=== PATIENT | male | born 1965 | race Caucasian/White ===

== ENCOUNTER 2022-05-10 21:05 | Inpatient (IN) | payer OTHER ==
[2022-05-11 03:14] VITALS: BMI 25.5
[2022-05-11] MEDS ORDERED: BISMUTH SUBSALICYLATE 524 MG/30 ML PO PRN (05:14)
[2022-05-11] MEDS ORDERED: IBUPROFEN 400 MG TABLET (FP) PO PRN (05:14)
[2022-05-11] MEDS ORDERED: cloNIDine HCL 0.1 MG TABLET PO PRN (05:14)
[2022-05-11] MEDS ORDERED: DICYCLOMINE HCL 10 MG CAPSULE PO PRN (05:14)
[2022-05-11] MEDS ORDERED: ONDANSETRON *ODT* 4 MG TABLET SL PRN (05:14)
[2022-05-11] MEDS ORDERED: MAG HYDROX/AL HYDROX/SIMETH 30 ML UNIT-DOSE CUP PO PRN (05:14)
[2022-05-11] MEDS ORDERED: IBUPROFEN 600 MG TABLET (FP) PO PRN (05:14)
[2022-05-11] MEDS ORDERED: methaDONE HCL 10 MG TABLET (FOR DETOX USE ONLY) PO ONE (05:14)
[2022-05-11] MEDS ORDERED: LOPERAMIDE HCL 2 MG CAPSULE PO PRN (05:14)
[2022-05-11] MEDS ORDERED: MAGNESIUM CITRATE 300 ML BOTTLE PO PRN (05:14)
[2022-05-11] MEDS ORDERED: MAGNESIUM HYDROX 2400MG/30ML ORAL SUSPENSION 30 ML CUP PO PRN (05:14)
[2022-05-11] MEDS ORDERED: ACETAMINOPHEN 325 MG TABLET (FP) PO PRN ×2 (05:14)
[2022-05-11] MEDS ORDERED: BENZOCAINE/MENTHOL (CHLORASEPTIC ) LOZENGE MM PRN (05:14)
[2022-05-11] MEDS ORDERED: methaDONE HCL 10 MG TABLET (FOR DETOX USE ONLY) ONE (09:20)
[2022-05-11] MEDS: PRENATAL VITAMINS W/ FOLIC ACID TABLET (FP) PO SCH (12:02)
[2022-05-11] MEDS: METHOCARBAMOL 500 MG TABLET PO PRN ×2 (12:05→22:12)
[2022-05-11 13:57] LABS: HEMATOCRIT 42.1 % (35.4-49); HEMOGLOBIN 13.9 GM/dL (11.7-16.9); MCH 31.2 pg (25.7-33.7); MEAN CELL VOLUME 94.5 fl (80-96); MEAN PLT VOLUME 9.2 fl (7.5-11.1); PLATELET COUNT 224 10^3/uL (134-434); RBC 4.46 M/mm3 (4.00-5.60); RDW 13.7 % (11.9-15.9); WHITE BLOOD COUNT 3.3 K/mm3 (4.0-10.0)
[2022-05-11 13:58] LABS: ALBUMIN 3.5 g/dl (3.4-5.0); BLOOD UREA NITROGEN 10.9 mg/dL (7-18)
[2022-05-11 14:02] LABS: BILIRUBIN,TOTAL 0.5 mg/dL (0.2-1); CALCIUM 9.5 mg/dL (8.5-10.1); TOT PROT 6.6 g/dl (6.4-8.2)
[2022-05-11 14:14] LABS: CREATININE 0.7 mg/dL (0.55-1.3)
[2022-05-11] MEDS: MELATONIN 5 MG TABLETS PO SCH (22:12)
[2022-05-11] MEDS: THIAMINE HCL 100 MG TABLET (FP) PO SCH (22:12)
[2022-05-12] MEDS: METHOCARBAMOL 500 MG TABLET PO PRN (10:52)
[2022-05-12] MEDS: PRENATAL VITAMINS W/ FOLIC ACID TABLET (FP) PO SCH (10:52)
[2022-05-12] MEDS: BICTEGRAV/EMTRICIT/TENOFOV (BIKTARVY) 50-200-25 MG TABLET PO SCH (14:45)
[2022-05-12] MEDS: MELATONIN 5 MG TABLETS PO SCH (23:20)
[2022-05-12] MEDS: THIAMINE HCL 100 MG TABLET (FP) PO SCH (23:20)
[2022-05-13] MEDS ORDERED: methaDONE HCL 10 MG TABLET (FOR DETOX USE ONLY) PO ONE (10:00)
[2022-05-13] MEDS: BICTEGRAV/EMTRICIT/TENOFOV (BIKTARVY) 50-200-25 MG TABLET PO SCH (10:26)
[2022-05-13] MEDS: PRENATAL VITAMINS W/ FOLIC ACID TABLET (FP) PO SCH (10:27)
[2022-05-13] MEDS: METHOCARBAMOL 500 MG TABLET PO PRN ×3 (10:27→22:18)
[2022-05-13] MEDS: diazePAM 5 MG TABLET PO PRN ×2 (17:18→22:18)
[2022-05-13] MEDS: MELATONIN 5 MG TABLETS PO SCH (22:17)
[2022-05-13] MEDS: THIAMINE HCL 100 MG TABLET (FP) PO SCH (22:17)
[2022-05-14] MEDS: BICTEGRAV/EMTRICIT/TENOFOV (BIKTARVY) 50-200-25 MG TABLET PO SCH (10:27)
[2022-05-14] MEDS: PRENATAL VITAMINS W/ FOLIC ACID TABLET (FP) PO SCH (10:28)
[2022-05-14] MEDS: THIAMINE HCL 100 MG TABLET (FP) PO SCH (23:59)
[2022-05-14] MEDS: MELATONIN 5 MG TABLETS PO SCH (23:59)
[2022-05-15] MEDS ORDERED: methaDONE HCL 10 MG TABLET (FOR DETOX USE ONLY) PO ONE (10:00)
[2022-05-15] MEDS: METHOCARBAMOL 500 MG TABLET PO PRN (10:22)
[2022-05-15] MEDS: PRENATAL VITAMINS W/ FOLIC ACID TABLET (FP) PO SCH (10:22)
[2022-05-15] MEDS: BICTEGRAV/EMTRICIT/TENOFOV (BIKTARVY) 50-200-25 MG TABLET PO SCH (10:22)
[2022-05-15] MEDS: MELATONIN 5 MG TABLETS PO SCH (23:35)
[2022-05-15] MEDS: THIAMINE HCL 100 MG TABLET (FP) PO SCH (23:35)
[2022-05-16 07:11] VITALS: BP 109/7; PULSE 60; RESP 18; TEMP 97.4
[2022-05-16] MEDS: BICTEGRAV/EMTRICIT/TENOFOV (BIKTARVY) 50-200-25 MG TABLET PO SCH (10:11)
[2022-05-16] MEDS: PRENATAL VITAMINS W/ FOLIC ACID TABLET (FP) PO SCH (10:11)
== END 2022-05-16 13:55 | disposition home or self-care (01) | DRG 897 ==
LOC: YASAS 21:05 → Y6N 05-11 11:41
PROVIDERS: ADMIT Allergy & Immunology; ATTEND Surgery
PROC: HZ2ZZZZ Detoxification Services for Substance Abuse Treatment (ICD-10-PCS; principal; 2022-05-11)
DX: F11.23 Opioid dependence with withdrawal (principal); F41.9 Anxiety disorder, unspecified; Z21 Asymptomatic human immunodeficiency virus [HIV] infection status; Z87.891 Personal history of nicotine dependence; Z56.0 Unemployment, unspecified; Z59.00 Homelessness unspecified
CPT/HCPCS: 36415; 80053; 85027; 86780; 87811; 93005; 93010; C9803-CS; U0003; U0005

== ENCOUNTER 2023-10-13 12:40 | Inpatient (IN) | payer OTHER ==
[2023-10-13 13:49] VITALS: BMI 25.0
[2023-10-13] MEDS ORDERED: MAG HYDROX/AL HYDROX/SIMETH 30 ML UNIT-DOSE CUP PO PRN (14:45)
[2023-10-13] MEDS ORDERED: POLYETHYLENE GLYCOL (HEALTHYLAX) 3350 17 GM PACKET PO PRN (14:45)
[2023-10-13] MEDS ORDERED: NALOXONE HCL (KLOXXADO) 8 MG SPRAY NS PRN (14:45)
[2023-10-13] MEDS ORDERED: ACETAMINOPHEN 325 MG TABLET (FP) PO PRN (14:45)
[2023-10-13] MEDS ORDERED: BENZOCAINE/MENTHOL (CHLORASEPTIC ) LOZENGE MM PRN (14:45)
[2023-10-13] MEDS ORDERED: ONDANSETRON *ODT* 4 MG TABLET SL PRN (14:45)
[2023-10-13] MEDS ORDERED: IBUPROFEN 400 MG TABLET (FP) PO PRN (14:45)
[2023-10-13] MEDS ORDERED: BENZONATATE 200 MG CAPSULE PO PRN (14:45)
[2023-10-13] MEDS ORDERED: NALOXONE HCL 0.4 MG/ML VIAL IM PRN (14:45)
[2023-10-13] MEDS ORDERED: BISMUTH SUBSALICYLATE 262 MG/15 ML BTL PO PRN (14:45)
[2023-10-13] MEDS ORDERED: guaiFENesin 600 MG TABLET.ER (FP) PO PRN (14:45)
[2023-10-13] MEDS ORDERED: MAGNESIUM HYDROX 2400MG/30ML ORAL SUSPENSION 30 ML CUP PO PRN (14:45)
[2023-10-13] MEDS ORDERED: cloNIDine HCL 0.1 MG TABLET PO PRN (14:45)
[2023-10-13] MEDS ORDERED: NICOTINE 14 MG/24 HOURS TOPICAL PATCH TD ONE (15:33)
[2023-10-13] MEDS ORDERED: methaDONE HCL 10 MG TABLET (FOR DETOX USE ONLY) ONE (15:33)
[2023-10-13] MEDS: methaDONE HCL 10 MG TABLET (FOR DETOX USE ONLY) PO ONE (15:37)
[2023-10-13] MEDS: PRENATAL VITAMINS W/ FOLIC ACID TABLET (FP) PO SCH (15:38)
[2023-10-13] MEDS: NICOTINE 14 MG/24 HOURS TOPICAL PATCH TD SCH (15:41)
[2023-10-13] MEDS: METHOCARBAMOL 500 MG TABLET PO PRN (22:42)
[2023-10-13] MEDS: hydrOXYzine PAMOATE 25 MG CAPSULE (FP) PO PRN (22:42)
[2023-10-13] MEDS: MELATONIN 5 MG TABLETS PO SCH (22:42)
[2023-10-13] MEDS: THIAMINE HCL 100 MG TABLET (FP) PO SCH (22:42)
[2023-10-14 13:40] LABS: HEMATOCRIT 38.5 % (35.4-49); HEMOGLOBIN 13.2 GM/dL (11.7-16.9); MCH 32.6 pg (25.7-33.7); MCHC 34.2 g/dl (32.0-35.9); MEAN CELL VOLUME 95.3 fl (80-96); MEAN PLT VOLUME 8.5 fl (7.5-11.1); PLATELET COUNT 188 10^3/uL (134-434); RBC 4.04 M/mm3 (4.00-5.60); RDW 13.1 % (11.9-15.9); WHITE BLOOD COUNT 4.9 K/mm3 (4.0-10.0)
[2023-10-14 14:11] LABS: POTASSIUM 4.4 mmol/L (3.5-5.1)
[2023-10-14 14:13] LABS: CALCIUM 9.1 mg/dL (8.5-10.1)
[2023-10-14 14:15] LABS: ALBUMIN 3.4 g/dl (3.4-5.0); BLOOD UREA NITROGEN 12.3 mg/dL (7-18)
[2023-10-14 14:17] LABS: CREATININE 0.7 mg/dL (0.55-1.3)
[2023-10-14 14:19] LABS: BILIRUBIN,TOTAL 0.5 mg/dL (0.2-1); TOT PROT 6.4 g/dl (6.4-8.2)
[2023-10-14] MEDS: IBUPROFEN 600 MG TABLET (FP) PO PRN (22:51)
[2023-10-15] MEDS: methaDONE HCL 10 MG TABLET (FOR DETOX USE ONLY) PO ONE (09:54)
[2023-10-16] MEDS: DICYCLOMINE HCL 10 MG CAPSULE PO PRN (09:57)
[2023-10-16] MEDS: GABAPENTIN 400 MG CAPSULE PO SCH (14:47)
[2023-10-16] MEDS: DIVALPROEX SODIUM 500 MG TABLET E.C. PO SCH (22:40)
[2023-10-17] MEDS: BICTEGRAV/EMTRICIT/TENOFOV (BIKTARVY) 50-200-25 MG TABLET PO SCH (08:08)
[2023-10-17] MEDS: methaDONE HCL 10 MG TABLET (FOR DETOX USE ONLY) PO ONE (10:32)
[2023-10-18] MEDS: LOPERAMIDE HCL 2 MG CAPSULE PO PRN (08:09)
[2023-10-18 09:23] VITALS: BP 109/60; PULSE 73; RESP 16; TEMP 98.4
== END 2023-10-18 09:56 | disposition home or self-care (01) | DRG 897 ==
LOC: YASAS 12:40 → Y6N 15:12
PROVIDERS: ADMIT Allergy & Immunology; ATTEND Surgery
PROC: HZ2ZZZZ Detoxification Services for Substance Abuse Treatment (ICD-10-PCS; principal; 2023-10-13)
DX: F11.23 Opioid dependence with withdrawal (principal); F14.20 Cocaine dependence, uncomplicated; F19.280 Other psychoactive substance dependence with psychoactive substance-induced anxiety disorder; B20 Human immunodeficiency virus [HIV] disease; G99.0 Autonomic neuropathy in diseases classified elsewhere; F17.210 Nicotine dependence, cigarettes, uncomplicated; F31.70 Bipolar disorder, currently in remission, most recent episode unspecified
CPT/HCPCS: 36415; 80053; 80164; 85027; 86780; 87635; 87811; 93005; 93010

== ENCOUNTER 2024-04-24 22:36 | Inpatient (IN) | payer OTHER ==
[2024-04-24 23:26] VITALS: BMI 22.5
[2024-04-25] MEDS ORDERED: NALOXONE (NARCAN) HCL 4 MG/0.1 ML SPRAY NS PRN (00:43)
[2024-04-25] MEDS ORDERED: DICYCLOMINE HCL 10 MG CAPSULE PO PRN (00:43)
[2024-04-25] MEDS ORDERED: POLYETHYLENE GLYCOL (HEALTHYLAX) 3350 17 GM PACKET PO PRN (00:43)
[2024-04-25] MEDS ORDERED: BENZONATATE 200 MG CAPSULE PO PRN (00:43)
[2024-04-25] MEDS ORDERED: guaiFENesin 600 MG TABLET.ER (FP) PO PRN (00:43)
[2024-04-25] MEDS ORDERED: BISMUTH SUBSALICYLATE 524 MG/30 ML PO PRN (00:43)
[2024-04-25] MEDS ORDERED: NICOTINE POLACRILEX 2 MG GUM BUC PRN (00:43)
[2024-04-25] MEDS ORDERED: MAG HYDROX/AL HYDROX/SIMETH 30 ML UNIT-DOSE CUP PO PRN (00:43)
[2024-04-25] MEDS ORDERED: ONDANSETRON *ODT* 4 MG TABLET SL PRN (00:43)
[2024-04-25] MEDS ORDERED: MAGNESIUM HYDROX 2400MG/30ML ORAL SUSPENSION 30 ML CUP PO PRN (00:43)
[2024-04-25] MEDS ORDERED: IBUPROFEN 600 MG TABLET (FP) PO PRN (00:43)
[2024-04-25] MEDS ORDERED: LOPERAMIDE HCL 2 MG CAPSULE PO PRN (00:43)
[2024-04-25] MEDS ORDERED: NALOXONE HCL 0.4 MG/ML VIAL IM PRN (00:43)
[2024-04-25] MEDS ORDERED: IBUPROFEN 400 MG TABLET (FP) PO PRN (00:43)
[2024-04-25] MEDS: ACETAMINOPHEN 325 MG TABLET (FP) PO PRN (01:30)
[2024-04-25] MEDS: PRENATAL VITAMINS W/ FOLIC ACID TABLET (FP) PO SCH (10:33)
[2024-04-25] MEDS: NICOTINE 14 MG/24 HOURS TOPICAL PATCH TD SCH (10:33)
[2024-04-25] MEDS: METHOCARBAMOL 500 MG TABLET PO PRN (10:34)
[2024-04-25] MEDS: MELATONIN 5 MG TABLETS PO SCH (22:12)
[2024-04-25] MEDS: THIAMINE 100 MG TABLET PO SCH (22:12)
[2024-04-26] MEDS ORDERED: cloNIDine HCL 0.1 MG TABLET PO PRN (10:12)
[2024-04-26] MEDS: methaDONE HCL 10 MG TABLET (FOR DETOX USE ONLY) PO ONE (10:49)
[2024-04-26 11:11] LABS: HEMATOCRIT 32.9 % (35.4-49); HEMOGLOBIN 10.9 GM/dL (11.7-16.9); MCH 31.4 pg (25.7-33.7); MCHC 33.1 g/dl (32.0-35.9); MEAN CELL VOLUME 94.9 fl (80-96); MEAN PLT VOLUME 8.6 fl (7.5-11.1); PLATELET COUNT 210 10^3/uL (134-434); RBC 3.46 M/mm3 (4.00-5.60); RDW 13.5 % (11.9-15.9); WHITE BLOOD COUNT 3.4 K/mm3 (4.0-10.0)
[2024-04-26 11:21] LABS: POTASSIUM 4.5 mmol/L (3.5-5.1)
[2024-04-26 11:25] LABS: ALBUMIN 2.5 g/dl (3.4-5.0); CALCIUM 8.7 mg/dL (8.5-10.1)
[2024-04-26 11:29] LABS: CREATININE 0.6 mg/dL (0.55-1.3)
[2024-04-26 11:30] LABS: BILIRUBIN,TOTAL 0.2 mg/dL (0.2-1); TOT PROT 5.3 g/dl (6.4-8.2)
[2024-04-27] MEDS: BICTEGRAV/EMTRICIT/TENOFOV (BIKTARVY) 50-200-25 MG TABLET PO SCH (13:56)
[2024-04-28] MEDS: methaDONE HCL 10 MG TABLET (FOR DETOX USE ONLY) PO ONE (09:44)
[2024-04-29] MEDS: hydrOXYzine PAMOATE 25 MG CAPSULE (FP) PO PRN (22:41)
[2024-04-29] MEDS: BENZOCAINE/MENTHOL (CHLORASEPTIC ) LOZENGE MM PRN (22:49)
[2024-04-30] MEDS: methaDONE HCL 10 MG TABLET (FOR DETOX USE ONLY) PO ONE (09:58)
[2024-05-01 06:47] VITALS: BP 102/60; PULSE 60; RESP 16; TEMP 98.9
== END 2024-05-01 08:47 | disposition home or self-care (01) | DRG 897 ==
LOC: YASAS 22:36 → Y3N 04-25 01:21
PROVIDERS: ADMIT Allergy & Immunology; ATTEND Surgery
PROC: HZ2ZZZZ Detoxification Services for Substance Abuse Treatment (ICD-10-PCS; principal; 2024-04-25)
DX: F11.23 Opioid dependence with withdrawal (principal); F14.20 Cocaine dependence, uncomplicated; Z59.00 Homelessness unspecified; F17.213 Nicotine dependence, cigarettes, with withdrawal; F41.9 Anxiety disorder, unspecified; Z21 Asymptomatic human immunodeficiency virus [HIV] infection status; Z79.899 Other long term (current) drug therapy; Z99.89 Dependence on other enabling machines and devices; Z56.0 Unemployment, unspecified
CPT/HCPCS: 36415; 80053; 80305; 80307; 85027; 86780; 93005; 93010

== ENCOUNTER 2024-11-04 08:33 | Inpatient (IN) | payer OTHER ==
[2024-11-04 09:08] VITALS: BMI 22.1
[2024-11-04] MEDS ORDERED: DICYCLOMINE HCL 10 MG CAPSULE PO PRN (09:22)
[2024-11-04] MEDS ORDERED: guaiFENesin 600 MG TABLET.ER (FP) PO PRN (09:22)
[2024-11-04] MEDS ORDERED: IBUPROFEN 600 MG TABLET (FP) PO PRN (09:22)
[2024-11-04] MEDS ORDERED: BISMUTH SUBSALICYLATE 262 MG/15 ML BTL PO PRN (09:22)
[2024-11-04] MEDS ORDERED: IBUPROFEN 400 MG TABLET (FP) PO PRN (09:22)
[2024-11-04] MEDS ORDERED: NALOXONE (NARCAN) HCL 4 MG/0.1 ML SPRAY NS PRN (09:22)
[2024-11-04] MEDS ORDERED: MAG HYDROX/AL HYDROX/SIMETH 30 ML UNIT-DOSE CUP PO PRN (09:22)
[2024-11-04] MEDS ORDERED: BENZONATATE 200 MG CAPSULE PO PRN (09:22)
[2024-11-04] MEDS ORDERED: NICOTINE POLACRILEX 2 MG GUM BUC PRN (09:22)
[2024-11-04] MEDS ORDERED: MAGNESIUM HYDROX 2400MG/30ML ORAL SUSPENSION 30 ML CUP PO PRN (09:22)
[2024-11-04] MEDS ORDERED: cloNIDine HCL 0.1 MG TABLET PO PRN (09:22)
[2024-11-04] MEDS ORDERED: BENZOCAINE/MENTHOL (CHLORASEPTIC ) LOZENGE MM PRN (09:22)
[2024-11-04] MEDS ORDERED: POLYETHYLENE GLYCOL (HEALTHYLAX) 3350 17 GM PACKET PO PRN (09:22)
[2024-11-04] MEDS ORDERED: ONDANSETRON *ODT* 4 MG TABLET SL PRN (09:22)
[2024-11-04] MEDS ORDERED: methaDONE HCL 10 MG TABLET (FOR DETOX USE ONLY) PO PRN (09:22)
[2024-11-04] MEDS ORDERED: LOPERAMIDE HCL 2 MG CAPSULE PO PRN (09:22)
[2024-11-04] MEDS ORDERED: methaDONE HCL 10 MG TABLET (FOR DETOX USE ONLY) ONE (09:55)
[2024-11-04] MEDS: NICOTINE 14 MG/24 HOURS TOPICAL PATCH TD SCH (09:56)
[2024-11-04] MEDS: methaDONE HCL 10 MG TABLET (FOR DETOX USE ONLY) PO ONE (09:57)
[2024-11-04] MEDS: PRENATAL VITAMINS W/ FOLIC ACID TABLET (FP) PO SCH (09:57)
[2024-11-04] MEDS: BICTEGRAV/EMTRICIT/TENOFOV (BIKTARVY) 50-200-25 MG TABLET PO SCH (10:10)
[2024-11-04] MEDS: GABAPENTIN 400 MG CAPSULE PO SCH (13:17)
[2024-11-04] MEDS: MELATONIN 5 MG TABLETS PO SCH (23:15)
[2024-11-04] MEDS: THIAMINE 100 MG TABLET PO SCH (23:15)
[2024-11-05 09:22] LABS: HEMATOCRIT 39.7 % (35.4-49); HEMOGLOBIN 13.3 GM/dL (11.7-16.9); MCH 31.8 pg (25.7-33.7); MCHC 33.5 g/dl (32.0-35.9); MEAN CELL VOLUME 94.9 fl (80-96); PLATELET COUNT 203 10^3/uL (134-434); RBC 4.18 M/mm3 (4.00-5.60); WHITE BLOOD COUNT 4.1 K/mm3 (4.0-10.0)
[2024-11-05 13:13] LABS: POTASSIUM 4.3 mmol/L (3.5-5.1)
[2024-11-05 13:15] LABS: BLOOD UREA NITROGEN 16.2 mg/dL (7-18); CALCIUM 9.1 mg/dL (8.5-10.1)
[2024-11-05 13:16] LABS: ALBUMIN 3.4 g/dl (3.4-5.0)
[2024-11-05 13:18] LABS: CREATININE 0.7 mg/dL (0.55-1.3)
[2024-11-05 13:20] LABS: TOT PROT 6.6 g/dl (6.4-8.2)
[2024-11-05 13:21] LABS: BILIRUBIN,TOTAL 0.3 mg/dL (0.2-1)
[2024-11-05] MEDS: MIRTAZAPINE 15 MG TABLET (FP) PO SCH (21:49)
[2024-11-06] MEDS: methaDONE HCL 10 MG TABLET (FOR DETOX USE ONLY) PO ONE (09:19)
[2024-11-07] MEDS: hydrOXYzine PAMOATE 25 MG CAPSULE (FP) PO PRN (13:44)
[2024-11-07] MEDS: METHOCARBAMOL 500 MG TABLET PO PRN (13:44)
[2024-11-08] MEDS: methaDONE HCL 10 MG TABLET (FOR DETOX USE ONLY) PO ONE (09:29)
[2024-11-08] MEDS: ACETAMINOPHEN 325 MG TABLET (FP) PO PRN (22:29)
[2024-11-09 08:37] VITALS: BP 98/64; PULSE 86; RESP 16; TEMP 98.4
== END 2024-11-09 09:27 | disposition home or self-care (01) | DRG 897 ==
LOC: YASAS 08:33 → Y6N 09:55
PROVIDERS: ADMIT Allergy & Immunology; ATTEND Allergy & Immunology
PROC: HZ2ZZZZ Detoxification Services for Substance Abuse Treatment (ICD-10-PCS; principal; 2024-11-04)
DX: F11.23 Opioid dependence with withdrawal (principal); F14.20 Cocaine dependence, uncomplicated; B20 Human immunodeficiency virus [HIV] disease; G99.0 Autonomic neuropathy in diseases classified elsewhere; F17.210 Nicotine dependence, cigarettes, uncomplicated; F31.9 Bipolar disorder, unspecified; F41.9 Anxiety disorder, unspecified
CPT/HCPCS: 36415; 80053; 80305; 80307; 85027; 86780; 93005; 93010